=== PATIENT | female | born 1980 | race Caucasian/White ===

== ENCOUNTER 2019-02-03 10:30 | Emergency (ER) | payer MEDICAID ==
[~2019-02-03] VITALS: Ht 154.9 cm; Wt 54.0 kg
[2019-02-03] MEDS ORDERED: MORPHINE SULFATE 4 MG/ML CPJ (NOT FOR IM USE) IV STA (10:46)
[2019-02-03] MEDS ORDERED: PROPOFOL 200MG/20ML VIAL IV ONE (13:15)
[2019-02-03] MEDS ORDERED: KETAMINE HCL 50 MG/ML 10ML IV ONE (13:15)
[2019-02-03] MEDS ORDERED: MORPHINE SULFATE 4 MG/ML CPJ (NOT FOR IM USE) IV ONE (14:15)
[2019-02-03 14:49] LABS: BASOPHILS % 0.2 % (0.0-2.0); EOSINOPHILS % 0.1 % (0.0-5.0); HEMATOCRIT. 39.2 % (36.0-48.0); HEMOGLOBIN. 13.1 g/dL (12.0-16.0); LYMPHOCYTES % 7.9 % (20.0-50.0); MEAN CORPUSCULAR HEMOGLOBIN 31.2 pg (28.0-32.0); MEAN CORPUSCULAR VOLUME 93.3 fL (81.0-99.0); MEAN PLATELET VOLUME 7.2 fl (7.4-10.4); NEUTROPHILS % 86.8 % (40.0-76.0); PLATELET 287 x1000/uL (130-400); RED CELL DISTRIBUTION WIDTH 13.4 % (11.6-14.6)
[2019-02-03 14:52] LABS: HCG SCREEN NEGATIVE
[2019-02-03] MEDS: KETAMINE HCL 50 MG/ML 10ML IV ONE ×2 (15:02→15:14)
[2019-02-03] MEDS: PROPOFOL 200MG/20ML VIAL IV ONE ×2 (15:02→15:14)
[2019-02-03 20:26] VITALS: BP 118/58
== END 2019-02-03 20:31 | disposition short-term general hospital (02) ==
LOC: ER 10:30
DX: S53.005A Unspecified dislocation of left radial head, initial encounter (principal); S52.122A Displaced fracture of head of left radius, initial encounter for closed fracture; W19.XXXA Unspecified fall, initial encounter; Y93.89 Activity, other specified; Y92.89 Other specified places as the place of occurrence of the external cause; Y99.8 Other external cause status
CPT/HCPCS: 24600; 36415; 70450; 70486; 73060; 73070; 73090; 81025; 84703; 85025; 96374; 96376; 99152; 99285; J2270; J2704; J3490; Z7610

== ENCOUNTER → 2021-09-10 | Outpatient (CLI) | payer MEDICAID | END | disposition home or self-care (01) | LOC: LAB 08:20 | PROVIDERS: ATTEND Surgery | DX: Z01.812 Encounter for preprocedural laboratory examination (principal); Z20.822 Contact with and (suspected) exposure to COVID-19 | CPT/HCPCS: 87426 ==

== ENCOUNTER → 2021-09-11 | Day surgery (SDC) | payer MEDICAID ==
[~2021-09-11] VITALS: Ht 142.2 cm; Wt 57.2 kg
[~2021-09-11] MED LIST: BUPIVACAINE HCL/PF 0.5% (5MG/ML) 30ML ONE; FENTANYL CITRATE/PF 50MCG/ML 2ML VIAL ONE; GLYCOPYRROLATE 0.2 MG/ML 2ML VIAL ONE; HYDROCODONE/ACETAMINOPHEN 5/325MG TABLET PO PRN; HYDROMORPHONE HCL/PF 2MG/ML CPJ IV PRN; LABETALOL 5MG/ML SYR 20 MG/4 ML SYRINGE IV PRN; LACTATED RINGERS 1,000 ML IV SCH; MEPERIDINE HCL/PF 25MG/ML CPJ IV PRN; MIDAZOLAM HCL 2 MG/2 ML VIAL ONE; NEOSTIGMINE METHYLSULFATE 1MG/ML 10 ML VIAL ONE; ONDANSETRON HCL 4MG/2ML INJ IV PRN; PROPOFOL 200MG/20ML VIAL IV ONE; ROCURONIUM BROMIDE 10MG/ML VIAL 5ML IV ONE; SKIN ADHESIVE 0.7 GM EA TOP ONE; SUCCINYLCHOLINE CHLORIDE 200MG/10ML IV ONE
[2021-09-11 07:09] LABS: UCG SCREEN NEGATIVE
[2021-09-11 10:37] VITALS: BP 136/76
== END | disposition home or self-care (01) ==
LOC: OR 06:26
PROVIDERS: ATTEND Surgery
DX: K80.10 Calculus of gallbladder with chronic cholecystitis without obstruction (principal); Z79.899 Other long term (current) drug therapy; Z98.890 Other specified postprocedural states
CPT/HCPCS: 47562; 81025; 88304; J0330; J2250; J2704; J2710; J3010; J3490